=== PATIENT | female | born 1975 | race Caucasian/White ===

== ENCOUNTER 2023-12-27 13:21 | Outpatient (CLI) | payer OTHER | END 2023-12-27 23:59 | disposition home or self-care (01) | LOC: MRI02 13:21 | PROVIDERS: ATTEND Family Medicine | DX: M47.26 Other spondylosis with radiculopathy, lumbar region (principal); M47.818 Spondylosis without myelopathy or radiculopathy, sacral and sacrococcygeal region; M48.061 Spinal stenosis, lumbar region without neurogenic claudication; M48.08 Spinal stenosis, sacral and sacrococcygeal region; M25.78 Osteophyte, vertebrae; M54.42 Lumbago with sciatica, left side | CPT/HCPCS: 72148 ==

== ENCOUNTER 2024-04-18 14:30 | Outpatient (CLI) | payer OTHER | END 2024-04-18 23:59 | disposition home or self-care (01) | LOC: MRI02 14:30 | PROVIDERS: ATTEND Family Medicine | DX: M50.123 Cervical disc disorder at C6-C7 level with radiculopathy (principal); G89.29 Other chronic pain; M48.02 Spinal stenosis, cervical region; M75.82 Other shoulder lesions, left shoulder; M75.52 Bursitis of left shoulder; M75.42 Impingement syndrome of left shoulder | CPT/HCPCS: 72141; 73221 ==